=== PATIENT | female | born 1990 | race Caucasian/White ===

== ENCOUNTER 2016-12-20 23:49 | Emergency (ER) | payer OTHER ==
[~2016-12-20 23:49] MED LIST: METH250T PO
[2016-12-21 00:27] VITALS: BP 123/77
[2016-12-21] MEDS ORDERED: HYDR-971 PO (00:55)
--- NOTE | 2016-12-21 00:55 | PHYS DOC ---
Adult General Chief Complaint Chief Complaint: DENTAL PROBLEM HPI HPI Patient is a 26 year old female presents emergency department stating that she was eating lunch today when she felt something hard in her food. She states that that time she noticed that her right lower third tooth from the front had broken. She'll states she did not have pain and discomfort at that time. She states the pain started tonight when she was trying to eat care with her family. She states that she has taken ibuprofen 800 mg twice today and Tylenol. She states that the ibuprofen has caused her to have an upset stomach. Review of Systems Review of Systems Constitutional: Denies fever or chills [] Eyes: Denies change in visual acuity, redness, or eye pain [] HENT: Denies nasal congestion or sore throat. Patient c/o teeth pain Respiratory: Denies cough or shortness of breath [] Cardiovascular: No additional information not addressed in HPI [] GI: Denies abdominal pain, nausea, vomiting, bloody stools or diarrhea [] : Denies dysuria or hematuria [] Musculoskeletal: Denies back pain or joint pain [] Integument: Denies rash or skin lesions [] Neurologic: Denies headache, focal weakness or sensory changes [] Allergies Allergies Allergies Coded Allergies Type Severity Reaction Last Updated Verified No Known Drug Allergies 11/21/15 No Physical Exam Physical Exam Constitutional: Well developed, well nourished, no acute distress, non-toxic appearance. [] HENT: Normocephalic, atraumatic, bilateral external ears normal, oropharynx moist, no oral exudates, nose normal. Bilateral tympanic membranes appear to be normal throat appears to be normal. Patient does have a discolored tooth that appears to be broken off on the third one on the right lower. No abscess noted. Eyes: PERRLA, EOMI, conjunctiva normal, no discharge. [] Neck: Normal range of motion, no tenderness, supple, no stridor. [] Cardiovascular:Heart rate regular rhythm, no murmur [] Lungs & Thorax: Bilateral breath sounds clear to auscultation [] Skin: Warm, dry, no erythema, no rash. [] Back: No tenderness Extremities: No tenderness, no cyanosis, no clubbing, ROM intact, no edema. [] Neurologic: Alert and oriented X 3, normal motor function, normal sensory function, no focal deficits noted. [] Psychologic: Affect normal, judgement normal, mood normal. [] EKG EKG [] Radiology/Procedures Radiology/Procedures [] Course & Med Decision Making Course & Med Decision Making Pertinent Labs and Imaging studies reviewed. (See chart for details) Patient will be discharged home with recommendations to purchase dental wax over -the-counter to place in the area. She'll be provided a few hydrocodone will help with pain and discomfort also recommended ibuprofen 800 mg every 8 hours. Recommended following up with a dentist as soon as possible. Patient will be discharged home in stable condition signs and symptoms to return back to emergency department as been provided. [] Dragon Disclaimer Dragon Disclaimer This electronic medical record was generated, in whole or in part, using a voice recognition dictation system. Departure Departure Impression: Primary Impression: Broken tooth Disposition: HOME, SELF-CARE Condition: STABLE Referrals: NO PCP (PCP) Patient Instructions: Dental Pain, [id number] Additional Instructions: Activity as tolerated Medication as prescribed [place] will cause drowsiness do not take if you need to be alert and oriented Ibuprofen 800 mg every 8 hours with food, stop taking if you develop upset stomach Dental wax may be purchased over the counter and will also help with pain Followup with a dentist within the week Return to emergency department for signs and symptoms that become worse. Scripts Hydrocodone/Apap 5-325 ([place] 5-325 Tablet)1 Each Tablet1 Tab PO PRN Q6HRS PRN PAIN #6 TAB Prov:JOSÉ WEEMS NP 12/21/16 JOSÉ WEEMS NP Dec 21, 2016 00:55
== END 2016-12-21 01:09 | disposition home or self-care (01) ==
LOC: ER 23:49
DX: K03.81 Cracked tooth (principal)
CPT/HCPCS: 99283

== ENCOUNTER → 2020-02-14 | Outpatient (CLI) | payer OTHER ==
[~2020-02-14] MED LIST changes: +HYDR-3164 PO; -METH250T PO; +METH250T3 PO
--- NOTE | 2020-02-14 13:25 | KCIC ---
PA and lateral right wrist radiographs 02/14/2020 CLINICAL HISTORY: History of recent right wrist fracture. PA and lateral digital radiographs of the right wrist were obtained. No previous studies are available for comparison. A comminuted fracture of the distal right radial metaphysis predominantly involving the radial styloid is seen. The alignment of fracture fragments is near-anatomic. There is evidence of callus formation consistent with interval healing. No acute fracture is noted. Mild degenerative changes are seen involving the radiocarpal joint. IMPRESSION: Healing fracture of the distal right radial metaphysis. Electronically signed by: Josef Mcintosh MD (02/14/2020 1:22 PM) [place] [id number]
== END | disposition home or self-care (01) ==
LOC: KCIC 12:15
PROVIDERS: ATTEND Physician Assistant
DX: S52.91XD Unspecified fracture of right forearm, subsequent encounter for closed fracture with routine healing (principal); X58.XXXD Exposure to other specified factors, subsequent encounter
CPT/HCPCS: 73100

== ENCOUNTER → 2020-03-20 | Outpatient (CLI) | payer OTHER ==
--- NOTE | 2020-03-20 11:10 | RAD ---
EXAM: PA and lateral views right wrist DATE: 03/20/2020 12:00 AM INDICATION: Right wrist fracture, follow-up COMPARISON: 02/14/2020 FINDINGS/ IMPRESSION: The known distal radial fracture is less conspicuous suggesting progressive healing, stable in alignment. Stable trace cortical offset at the scaphoid fossa of the radiocarpal joint. Electronically signed by: Hugh Hampton MD (03/20/2020 11:07 AM) [id number]
== END | disposition home or self-care (01) ==
LOC: RAD 10:12
PROVIDERS: ATTEND Orthopaedic Surgery
DX: S52.501A Unspecified fracture of the lower end of right radius, initial encounter for closed fracture (principal); X58.XXXA Exposure to other specified factors, initial encounter; Y93.89 Activity, other specified; Y92.89 Other specified places as the place of occurrence of the external cause; Y99.8 Other external cause status
CPT/HCPCS: 73100

== ENCOUNTER 2020-05-01 19:47 | Emergency (ER) | payer OTHER ==
[~2020-05-01] VITALS: Ht 170.2 cm; Wt 90.0 kg
[2020-05-01 20:05] VITALS: BP 120/90
[2020-05-02] MEDS ORDERED: NITR100C62 PO ×2 (10:16→10:22)
== END 2020-05-01 21:45 | disposition left against medical advice (07) ==
LOC: ER 19:47
DX: R10.32 Left lower quadrant pain (principal); R10.2 Pelvic and perineal pain; Z53.21 Procedure and treatment not carried out due to patient leaving prior to being seen by health care provider
CPT/HCPCS: 81025

== ENCOUNTER 2020-05-02 08:39 | Emergency (ER) | payer OTHER ==
[~2020-05-02] VITALS: Ht 170.2 cm; Wt 95.0 kg
--- NOTE | 2020-05-02 08:56 | PHYS DOC ---
Past Medical History Past Medical History: Anxiety, Hypertension, Other Additional Past Medical Histor: carpal tunnel syndrome Past Surgical History: Smoking Status: Current Every Day Smoker Alcohol Use: None Drug Use: None General Adult EDM: Chief Complaint: PELVIC PAIN HPI: HPI: 29F p/w pelvic pain x2-3 days, dull in nature, a/w urinary urgency and white vaginal discharge. Had vaginal intercourse 3 days ago, now feels a pelvic/vaginal fullness. Treated for UTI/BV about 1 month ago. No prior abd surgeries. No N/V/D. Review of Systems: Review of Systems: Gen: No fever, chills. Eyes: No blurred vision, diplopia. ENT: No nasal congestion, sore throat. CV: No CP, palpitations. Resp. No SOB, cough. GI: No abd pain, N/V. : No dysuria, hematuria. Reports urinary urgency, vaginal DC, pelvic fullness. Neuro: No BETANCOURT, dizziness, weakness. MSK: No myalgia, arthralgia. Skin: No acute rash or lesion. Heart Score: Risk Factors: Risk Factors: DM, Current or recent (<one month) smoker, HTN, HLP, family history of CAD, obesity. Risk Scores: Score 0 - 3: 2.5% MACE over next 6 weeks - Discharge Home Score 4 - 6: 20.3% MACE over next 6 weeks - Admit for Clinical Observation Score 7 - 10: 72.7% MACE over next 6 weeks - Early Invasive Strategies Allergies: Allergies: Allergies Coded Allergies Type Severity Reaction Last Updated Verified No Known Drug Allergies 11/21/15 No Physical Exam: PE: Gen: NAD. Head: NC/AT. Eyes: No scleral icterus. No conjunctival injection. ENT: MMM. Posterior OP clear. Neck: Supple. CV: RRR. Peripheral pulses intact. Resp: CTAB. Abd: Soft. NT. ND. : Scant thick white cervical discharged noted. No CMT. MSK: No peripheral cyanosis. No edema. Neuro: Awake and alert. Skin. Warm. Dry. Psych: Appropriate mood & affect. Current Patient Data: Labs: Microbiology 05/02/20 Wet Prep - Final, Complete WET PREP Final YEAST NONE SEEN TRICHOMONAS NONE SEEN CLUE CELLS NONE SEEN SQUAMOUS EPS MANY Laboratory Tests Test 05/02/20 08:55 05/02/20 08:58 Urine Collection Type Unknown Urine Color Yellow Urine Clarity Clear Urine pH 5.5 (<5.0-8.0) Urine Specific [place] >=1.030 (1.000-1.030) Urine Protein Negative mg/dL (NEG-TRACE) Urine Glucose (UA) Negative mg/dL (NEG) Urine Ketones (Stick) Negative mg/dL (NEG) Urine Blood Negative (NEG) Urine Nitrite Positive (NEG) Urine Bilirubin Small (NEG) Urine Urobilinogen Dipstick 0.2 mg/dL (0.2 mg/dL) Urine Leukocyte Esterase Small (NEG) Urine RBC 0 /HPF (0-2) Urine WBC 11-20 /HPF (0-4) Urine Squamous Epithelial Cells Mod /LPF Urine Bacteria Mod /HPF (0-FEW) Urine Mucus Mod /LPF Bedside Urine HCG, Qualitative Hcg negative (Negative) EKG: EKG: [] Radiology/Procedures: Radiology/Procedures: [] Course & Med Decision Making: Course & Med Decision Making Pertinent Labs and Imaging studies reviewed. (See chart for details) In summary, 29-year-old female who presents evaluation of urinary urgency, pelvic pain, vaginal discharge. Urinalysis is likely indicative of urinary tract infection. She will be prescribed a 5-day course of Macrobid. Her wet pr ep did not reveal any trichomonas or clue cells indicative of trichomoniasis or bacterial vaginosis. There was thick white vaginal discharge noted on speculum exam, however. GC and chlamydia were sent, but remain pending. After discussion with the patient, she has opted to undergo empiric treatment with Rocephin 250 mg IM and Zithromax 1 g PO. We discharged home with outpatient follow-up. Return precautions given. Dragon Disclaimer: Dragon Disclaimer: This electronic medical record was generated, in whole or in part, using a voice recognition dictation system. Departure Departure Impression: Primary Impression: Cervicitis Additional Impression: UTI (urinary tract infection) Disposition: 01 HOME, SELF-CARE Condition: STABLE Referrals: UNKNOWN PCP NAME (PCP) Patient Instructions: Cervicitis, [id number], Urinary Tract Infection, [id number] Additional Instructions: Take the prescribed antibiotic for your UTI. Follow up with [facility] if you have continued symptoms. Scripts Nitrofurantoin Monohyd/M-Cryst (MACROBID 100 MG CAPSULE) 100 Mg Capsule 1 CAP PO BID for 5 Days, #10 CAP 0 Refills Prov: TESSY TABOR DO 05/02/20 Justicifation of Admission Dx: Justifications for Admission: Justification of Admission Dx: N/A TESSY TABOR DO May 02, 2020 08:56
[2020-05-02 09:06] LABS: BILIRUBIN,URINE SMALL (NEG); CLARITY,URINE CLEAR; COLOR,URINE YELLOW; NITRITE,URINE POSITIVE (NEG); PH,URINE 5.5 (<5.0-8.0); PROTEIN,URINE NEGATIVE (NEG-TRACE); UROBILINOGEN,URINE 0.2 mg/dL (0.2 mg/dL)
[2020-05-02 09:37] LABS: BACTERIA,URINE MOD /HPF (0-FEW); RBC,URINE 0 /HPF (0-2); SQUAMOUS EPITHELIAL CELL,UR MOD /LPF
[2020-05-02] MEDS ORDERED: NITR100C62 PO ×2 (10:16→10:22)
[2020-05-02 10:22] VITALS: BP 137/77
[2020-05-02] MEDS ORDERED: cefTRIAXone IM 250 MG VIAL IM ONE (10:30)
[2020-05-02] MEDS ORDERED: AZITHROMYCIN 250 MG TABLET. PO ONE (10:30)
[2020-05-03 20:08] LABS: GC PROBE Positive (Negative)
== END 2020-05-02 10:46 | disposition home or self-care (01) ==
LOC: ER 08:39
DX: N72 Inflammatory disease of cervix uteri (principal); N39.0 Urinary tract infection, site not specified; I10 Essential (primary) hypertension; F17.200 Nicotine dependence, unspecified, uncomplicated; F41.9 Anxiety disorder, unspecified; Z98.890 Other specified postprocedural states
CPT/HCPCS: 81001; 81025; 87491; 87591; 96372; 99284; J0696; Q0111

== ENCOUNTER 2022-02-02 00:37 | Emergency (ER) | payer SELFPAY ==
[~2022-02-02] VITALS: Ht 170.2 cm; Wt 90.9 kg
[~2022-02-02 00:37] MED LIST changes: +NITR100C62 PO
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
[2022-02-02 01:12] LABS: BASO % 1 % (0-3); EOS # 0.2 x10^3/uL (0.0-0.7); EOS % 3 % (0-3); HEMATOCRIT 37.9 % (36.0-47.0); HEMOGLOBIN 12.5 g/dL (12.0-15.5); LYMPH # 3.5 x10^3/uL (1.0-4.8); LYMPH % 49 % (24-48); MEAN CORPUSCULAR HEMOGLOBIN 27 pg (25-35); MEAN CORPUSCULAR HGB CONC 33 g/dL (31-37); MEAN CORPUSCULAR VOLUME 82 fL (79-100); MONO # 0.6 x10^3/uL (0.0-1.1); MONO % 8 % (0-9); NEUT # 2.9 x10^3/uL (1.8-7.7); NEUT % 40 % (31-73); PLATELET COUNT 257 x10^3/uL (140-400); RED BLOOD COUNT 4.64 x10^6/uL (3.50-5.40); RED CELL DISTRIBUTION WIDTH 13.8 % (11.5-14.5); WHITE BLOOD COUNT 7.2 x10^3/uL (4.0-11.0)
[2022-02-02] MEDS ORDERED: diphenhydrAMINE 50 MG/ML VIAL IVP ONE (01:30)
[2022-02-02] MEDS ORDERED: IV NORMAL SALINE 1000ML BAG 1,000 ML IV ONE (01:30)
[2022-02-02] MEDS ORDERED: PROCHLORPERAZINE 10 MG/2 ML VIAL. IV ONE (01:30)
[2022-02-02 01:43] LABS: CALCIUM 8.8 mg/dL (8.5-10.1); CREATININE 0.9 mg/dL (0.6-1.0); GFR 72.6
[2022-02-02 01:55] LABS: ALBUMIN 3.4 g/dL (3.4-5.0); ALBUMIN/GLOBULIN RATIO 0.8 (1.0-1.7); MAGNESIUM 2.2 mg/dL (1.8-2.4); TOTAL BILIRUBIN 0.2 mg/dL (0.2-1.0); TOTAL PROTEIN 7.6 g/dL (6.4-8.2)
--- NOTE | 2022-02-02 01:57 | EKG ---
[facility] [address] [place] [address] Test Date: 2022-02-02 Test Time: 01:10:35 Pat Name: GOPAL VASQUEZ Department: Room: Gender: F Value Engineer: : 1990 Requested By: GOPAL FONG Order Number: [id number] Reading MD: Measurements Intervals [place] Rate: 110 P: 41 AK: 158 QRS: 19 QRSD: 94 T: 41 QT: 348 QTc: 477 Interpretive Statements SINUS TACHYCARDIA OTHERWISE NORMAL ECG RI6.02 No previous ECG available for comparison
[2022-02-02 03:06] LABS: PREG TEST PT QUAL NEGATIVE (NEG)
--- NOTE | 2022-02-02 03:30 | RAD ---
CT head without contrast PQRS statement: CT scans at this facility use dose reduction including either automated exposure cont rol, iterative reconstructions, and /or weight based radiation dosing via mA and kV modification when appropriate to reduce radiation dose to as low as reasonably achievable. HISTORY: Seizure. COMPARISON: No priors FINDINGS: No intracranial hemorrhage, mass, hydrocephalus, extra-axial fluid collections or infarctio n. Orbits, mastoids and bones are normal. IMPRESSION: Normal exam. Electronically signed by: Kenny Sy MD (02/02/2022 3:27 AM) [facility]
[2022-02-02 04:35] VITALS: BP 125/64
== END 2022-02-02 04:43 | disposition home or self-care (01) ==
LOC: ER 00:37
DX: G40.909 Epilepsy, unspecified, not intractable, without status epilepticus (principal); R51.9 Headache, unspecified; I10 Essential (primary) hypertension; F17.200 Nicotine dependence, unspecified, uncomplicated
CPT/HCPCS: 36415; 70450; 80053; 82550; 83605; 83735; 83874; 83880; 84100; 84484; 84703; 85025; 93005; 96361; 96374; 96375; 99285; G0480; J0780; J1200; J2060; J7030